=== PATIENT | female | born 1985 | race Caucasian/White ===

== ENCOUNTER 2021-09-03 21:32 | Inpatient (IN) | payer BC ==
[2021-09-03] MEDS ORDERED: Ondansetron PF 4 MG/2 ML Vial IVP PRN ×2 (22:08→22:45)
[2021-09-03] MEDS ORDERED: Bicitra 30 ML UDCUP PO PRN (22:08)
[2021-09-03] MEDS ORDERED: Famotidine/PF 20 mg/2ml Vial SLOW IVP PRN (22:08)
[2021-09-03] MEDS ORDERED: hydrALAZINE 20 MG/ML VIAL SLOW IVP PRN (22:08)
[2021-09-03] MEDS ORDERED: Acetaminophen 500 MG TAB PO PRN (22:08)
[2021-09-03] MEDS ORDERED: Promethazine HCl 25 MG/ML VIAL IM PRN ×2 (22:08→22:45)
[2021-09-03] MEDS ORDERED: Clindamycin/D5W 900 MG in Premix Bag 1 BAG IVPB SCH (22:15)
[2021-09-03] MEDS ORDERED: Lactated Ringer's 1,000 ML IV SCH (22:15)
[2021-09-03] MEDS ORDERED: Naloxone HCl 0.4 mg/ml Vial IV PRN (22:45)
[2021-09-03] MEDS ORDERED: Ketorolac Tromethamine 30 MG/ML VIAL IVP SCH (22:45)
[2021-09-03] MEDS ORDERED: Ondansetron HCl/PF 4 MG/2 ML Vial IVP PRN (22:45)
[2021-09-03] MEDS ORDERED: Naloxone HCl 0.4 mg/ml Vial IVP PRN ×2 (22:45)
[2021-09-03] MEDS ORDERED: Promethazine HCl 25 MG SUPP PR PRN (22:45)
[2021-09-03] MEDS ORDERED: Meperidine HCl/PF 25 MG/ML VIAL SLOW IVP PRN (22:45)
[2021-09-03] MEDS ORDERED: Communication Order-Pharmacy FS SCH (22:45)
[2021-09-03] MEDS ORDERED: Fentanyl 100 MCG/2 ML VIAL SLOW IVP PRN (22:45)
[2021-09-03] MEDS ORDERED: diphenhydrAMINE 50 MG/ML VIAL IVP PRN (22:45)
[2021-09-03] MEDS ORDERED: Moisturizing Cream (Eucerin) 113 GM JAR TOP PRN (22:45)
[2021-09-03] MEDS ORDERED: L&D-Morphine 4 MG/ML VIAL SLOW IVP PRN (22:45)
[2021-09-03 22:56] VITALS: BMI 29.5
[2021-09-03 22:58] LABS: Hemoglobin 11.9 g/dL (12.0-15.5); Mean Corpuscular HGB CONC 34.6 g/dL (32.0-36.0); Mean Corpuscular Hemoglobin 29.8 pg (27.0-33.0); Mean Corpuscular Volume 86.2 fl (81.6-98.3); Mean Platelet Volume 10.4 fl (7.4-10.4); Platelet Count 206 10x3/uL (150-450); RBC Distribution Width 13.8 % (11.5-14.5); Red Blood Cell (RBC) Count 3.99 10x6/uL (3.90-5.03); White Blood Cell (WBC) Count 12.7 10x3/uL (3.5-10.5)
[2021-09-03] MEDS ORDERED: Ondansetron PF 4 MG/2 ML Vial ONE (22:58)
[2021-09-03] MEDS ORDERED: Dexamethasone 4 mg/ml Vial ONE (22:58)
[2021-09-03] MEDS ORDERED: PHENYLEPHRINE-NS 100 MCG/ML 10 ML SYRINGE ONE (22:58)
[2021-09-03] MEDS ORDERED: Morphine PF 10 MG/10 ML VIAL ONE (22:58)
[2021-09-03] MEDS ORDERED: Oxytocin 10 UNITS/ML VIAL ONE (22:59)
[2021-09-03 23:26] LABS: Hep B Surf Ag Non-Reactive S/CO (NonReactive); Syphilis Antibody Nonreactive (Nonreactive); Syphilis Antibody Index 0.02 S/CO (<1.00 Non-Reactive)
[2021-09-03 23:44] LABS: HBSAg Index 0.19 S/CO (0-0.99)
[2021-09-04] MEDS ORDERED: Gentamicin 110 MG in Sodium Chloride 0.9% 100 ML IVPB SCH
[2021-09-04] MEDS ORDERED: Tranexamic Acid 1,000 MG/10 ML VIAL ONE (00:03)
[2021-09-04] MEDS ORDERED: Methylergonovine 0.2 MG/ML VIAL ONE (00:03)
[2021-09-04 01:29] LABS: SARS-CoV-2 NAA Rapid Test Not Detected (NotDetected)
[2021-09-04] MEDS ORDERED: NS w/ Oxytocin 30 units 0 ML ONE (02:26)
[2021-09-04] MEDS: Ketorolac Tromethamine 30 MG/ML VIAL IVP PRN ×2 (02:34→09:30)
[2021-09-04] MEDS ORDERED: Methylergonovine 0.2 MG/ML VIAL IM PRN (03:40)
[2021-09-04] MEDS ORDERED: diphenhydrAMINE 25 MG CAP PO PRN (03:40)
[2021-09-04] MEDS ORDERED: Boostrix 0.5 ML (Tdap) VIAL IM ONE (03:40)
[2021-09-04] MEDS ORDERED: Ondansetron PF 4 MG/2 ML Vial IVP PRN (03:40)
[2021-09-04] MEDS ORDERED: NS w/ Oxytocin 30 units 500 ML IV SCH (03:40)
[2021-09-04] MEDS ORDERED: Lanolin Ointment 7 GM TUBE TOP PRN (03:40)
[2021-09-04] MEDS ORDERED: hydrALAZINE 20 MG/ML VIAL SLOW IVP PRN (03:40)
[2021-09-04] MEDS: Ferrous Sulfate 325 MG TAB PO SCH (07:55)
[2021-09-04] MEDS: Docusate 100 MG CAP PO SCH ×2 (08:14→21:24)
[2021-09-04] MEDS: Prenatal Vitamin 1 TAB PO SCH (08:14)
[2021-09-04] MEDS ORDERED: HYDROcodone/Acetaminophen 5/325 mg Tablet PO PRN (10:45)
[2021-09-04] MEDS: Ibuprofen 800 MG TAB PO SCH (22:24)
[2021-09-04] MEDS: HYDROcodone/Acetaminophen 5/325 mg Tablet PO PRN (22:25)
[2021-09-05 04:41] LABS: Hemoglobin 9.8 g/dL (12.0-15.5); Mean Corpuscular Hemoglobin 30.4 pg (27.0-33.0); Mean Corpuscular Volume 89.4 fl (81.6-98.3); Mean Platelet Volume 10.7 fl (7.4-10.4); Platelet Count 173 10x3/uL (150-450); Red Blood Cell (RBC) Count 3.22 10x6/uL (3.90-5.03)
[2021-09-05] MEDS: Ibuprofen 800 MG TAB PO SCH ×3 (05:06→21:35)
[2021-09-05] MEDS ORDERED: Ibuprofen 800 MG TAB PO SCH (06:00)
[2021-09-05] MEDS: Prenatal Vitamin 1 TAB PO SCH (08:08)
[2021-09-05] MEDS: Ferrous Sulfate 325 MG TAB PO SCH ×2 (08:08→21:34)
[2021-09-05] MEDS: Docusate 100 MG CAP PO SCH ×2 (08:08→21:34)
[2021-09-05] MEDS: HYDROcodone/Acetaminophen 5/325 mg Tablet PO PRN ×3 (09:20→17:01)
[2021-09-05] MEDS: Simethicone Chewable 80 MG TAB PO PRN ×3 (13:30→21:34)
[2021-09-05 21:03] VITALS: TEMP 98.1
[2021-09-06] MEDS: Ibuprofen 800 MG TAB PO SCH ×2 (04:50→13:04)
[2021-09-06 07:26] VITALS: BP 114/58
[2021-09-06] MEDS: Docusate 100 MG CAP PO SCH (08:38)
[2021-09-06] MEDS: Simethicone Chewable 80 MG TAB PO PRN (08:38)
[2021-09-06] MEDS: Prenatal Vitamin 1 TAB PO SCH (08:38)
[2021-09-06] MEDS: Ferrous Sulfate 325 MG TAB PO SCH (08:38)
[2021-09-06] MEDS: HYDROcodone/Acetaminophen 5/325 mg Tablet PO PRN ×2 (08:56→13:04)
== END 2021-09-06 13:45 | disposition home or self-care (01) | DRG 785 ==
LOC: CSHLD/OP 21:32 → CSHLD 22:08 → UNDOADMIN 09-04 00:16 → CSHLD 09-04 02:45 → CSHPP 09-04 02:45
PROVIDERS: ADMIT Student in an Organized Health Care Education/Training Program; ATTEND Student in an Organized Health Care Education/Training Program
PROC: 10D00Z1 Extraction of Products of Conception, Low, Open Approach (ICD-10-PCS; principal; 2021-09-03)
PROC: 0UT70ZZ Resection of Bilateral Fallopian Tubes, Open Approach (ICD-10-PCS; 2021-09-03)
DX: O80 Encounter for full-term uncomplicated delivery (principal); Z3A.39 39 weeks gestation of pregnancy; Z37.0 Single live birth; Z20.822 Contact with and (suspected) exposure to COVID-19; Z90.49 Acquired absence of other specified parts of digestive tract; Z79.899 Other long term (current) drug therapy; Z88.0 Allergy status to penicillin; Z80.9 Family history of malignant neoplasm, unspecified
CPT/HCPCS: 36415; 51702; 85027; 86780; 86850; 86900; 86901; 87340; 88302; 99285; J1100; J1580; J1885; J2210; J2274; J2405; J2590; J3490; S0028; U0002